=== PATIENT | female | born 1980 | race American Indian/Alaskan Native ===

== ENCOUNTER 2016-11-19 22:28 | Emergency (ER) | payer OTHER ==
[2016-11-19 22:36] VITALS: BP 138/80; PULSE 73; RESP 20; TEMP 98.3; O2SAT 100
[2016-11-19 23:15] LABS: URINE BILIRUBIN NEGATIVE (NEGATIVE); URINE BLOOD NEGATIVE (NEGATIVE); URINE COLOR Yellow (YELLOW); URINE GLUCOSE (UA) NORMAL (Normal); URINE KETONE NEGATIVE (NEGATIVE); URINE LEUKOCYTE ESTERASE NEG Leu/uL (Negative); URINE PROTEIN NEGATIVE (NEGATIVE); URINE UROBILINOGEN NORMAL mg/dL (0.2-1.0); WBC URINE 1 /hpf (0-5)
--- NOTE | 2016-11-20 00:13 | C.PDOC ---
History Of Present Illness 89 year old female presents to the ED with complaints of right lower back pain , urinary urgency and hesitancy for two days. Patient has a history of UTI with similar symptoms. She denies any hematuria, dysuria, abdominal pain, vaginal discharge, bleeding or fever. Time Seen by Provider: 11/19/16 22:49 Chief Complaint (Nursing): Back Pain History Per: Patient History/Exam Limitations: no limitations Onset/Duration Of Symptoms: Days (two days) Current Symptoms Are (Timing): Still Present Quality Of Discomfort: "Pain" Previous Symptoms: Back Pain Recent travel outside of the [place]: No Past Medical History Reviewed: Historical Data, Nursing Documentation, Vital Signs Vital Signs: Last Vital Signs Temp 98.3 F 11/19/16 22:31 Pulse 73 11/19/16 22:31 Resp 20 11/20/16 00:17 BP 138/80 11/19/16 22:31 Pulse Ox 100 11/20/16 06:25 - Medical History PMH: Back Problems (bulging lumbar disks), HTN Family History: States: Unknown Family Hx - Social History Hx Tobacco Use: No Hx Alcohol Use: No Hx Substance Use: No - Immunization History Hx Tetanus Toxoid Vaccination: No Hx Influenza Vaccination: No Hx Pneumococcal Vaccination: No Review Of Systems Constitutional: Negative for: Fever, Chills, Sweats Gastrointestinal: Negative for: Nausea, Vomiting, Abdominal Pain, Diarrhea Genitourinary: Positive for: Frequency, Other (urinary urgency and hesitancy ). Negative for: Dysuria, Hematuria, Vaginal Discharge, Vaginal Bleeding, Pelvic Pain Physical Exam - Physical Exam Appears: Non-toxic, No Acute Distress Skin: Warm, Dry Head: Atraumatic Eye(s): bilateral: Normal Inspection, PERRL, EOMI Oral Mucosa: Moist Neck: Supple Respiratory: No Wheezing Gastrointestinal/Abdominal: Normal Exam, Soft, No Tenderness, No Distention, No Guarding Back: Normal Inspection, No CVA Tenderness Pelvic: Other (deferred) Extremity: Normal ROM, No Tenderness Neurological/Psych: Oriented x3 Additional Physical Exam Comments: Patient's urine appears normal. ED Course And Treatment O2 Sat by Pulse Oximetry: 100 (room air ) Progress Note: Patient's urine culture sent for testing. Based on patient past symptoms and history, she will be treated for UTI. Pt will follow up with PMD for Urine Cx results Disposition Counseled Patient/Family Regarding: Diagnosis, Need For Followup, Rx Given - Disposition Referrals: Byron Moody DO [Staff Provider] - Disposition: HOME/ ROUTINE Disposition Time: 00:12 Condition: STABLE Additional Instructions: INCRESAE PO FLUIDS TAKE MEDS DIRECTED RETURN TO ER IF WORSE Prescriptions: Ibuprofen [Motrin] 600 mg PO Q6H #20 tab Nitrofurantoin Macrocrystals [Macrobid] 1 cap PO BID #14 cap Instructions: Urinary Tract Infection in Women (ED) - Clinical Impression Clinical Impression: Low back pain, UTI (urinary tract infection) - Scribe Statement The provider has reviewed the documentation as recorded by the Scribe Rhianna Isabel All medical record entries made by the Scribe were at my direction and personally dictated by me. I have reviewed the chart and agree that the record accurately reflects my personal performance of the history, physical exam, medical decision making, and the department course for this patient. I have also personally directed, reviewed, and agree with the discharge instructions and disposition.
== END 2016-11-20 00:17 | disposition home or self-care (01) ==
LOC: C.ER 22:28
DX: N39.0 Urinary tract infection, site not specified (principal); M54.5 Low back pain

== ENCOUNTER 2017-09-30 10:14 | Emergency (ER) | payer BC, OTHER ==
[2017-09-30 10:18] VITALS: BMI 22.3
[2017-09-30 10:19] VITALS: RESP 18; O2SAT 100
--- NOTE | 2017-09-30 10:38 | C.PDOC ---
History Of Present Illness 36 year old female presents to the emergency department with complaints of a headache persisting since yesterday. Patient states that she woke up yesterday morning with a headache in her occipital lobe, greater on the right side, and has been experiencing light sensitivity with her pain worsening with eye movements. Patient states her symptoms resolved during the day after she took a shower, but recurred last night. Patient reports taking Advil for her pain which provided relief. She reports she woke up this morning experiencing the same symptoms with greater intensity. Patient reports she normally gets a headache every two to three months, normally relieved with Advil. Patient denies taking any medications prior to arrival, trauma, nausea, vomiting, vision change, and a family history of migraines. VELEZ SINCE YEST. PS AWOKE YEST MORNING W R>L OCCIPITAL VELEZ, LIGHT SENSITIVITY, PAIN WORSE W EYE MOVEMENT. SX RESOLVED DURING DAY AFTER SHOWER, RECURRED LAST NIGHT. RELIEF W ADVIL. AWOKE THIS MORNING W MORE INTENSE SX. NO TRAUMA, NV, VISION CHANGE. PS NORMALLY GETS VELEZ EVERY 2-3 MO, NORMALLY RELIEVED W ADVIL. DENIES FHX MIGRAINE. 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 denies: Blurred Vision, Nausea, Vomiting Past Medical History Reviewed: Historical Data, Nursing Documentation, Vital Signs Vital Signs: Last Vital Signs Temp 99.6 F 09/30/17 10:17 Pulse 102 H 09/30/17 10:17 Resp 18 09/30/17 10:17 BP 127/81 09/30/17 10:17 Pulse Ox 100 09/30/17 12:10 - Medical History PMH: Back Problems (bulging lumbar disks), HTN Family History: Denies: Other - Social History Hx Tobacco Use: No Hx Alcohol Use: No Hx Substance Use: No - Immunization History Hx Tetanus Toxoid Vaccination: Yes Hx Influenza Vaccination: No Hx Pneumococcal Vaccination: No Review Of Systems Except As Marked, All Systems Reviewed And Found Negative. Eyes: Positive for: Pain (worse with eye movements), Other (photophobia). Negative for: Vision Change Gastrointestinal: Negative for: Nausea, Vomiting Neurological: Positive for: Headache (occipital lobe) Physical Exam - Physical Exam Appears: Non-toxic, In Acute Distress (mild) Skin: Normal Color Head: Atraumatic Eye(s): bilateral: EOMI (without difficulty), Photophobia, Other (no double vision, no gross vision deficiency) Nose: Normal (clear), No Tenderness (sinus tenderness) Neck: Normal, Supple Cardiovascular: Rhythm Regular Respiratory: Other (NARD) Neurological/Psych: Oriented x3, Normal Speech, Normal Cognition, No Other (no focal deficiencies) ED Course And Treatment O2 Sat by Pulse Oximetry: 100 (RA) Pulse Ox Interpretation: Normal - CT Scan/US Head Other Rad Studies (CT/US): Read By Radiologist, Radiology Report Reviewed CT/US Interpretation: No evidence of acute intracranial hemorrhage intracranial collection mass effect or midline shift. Progress Note: Plan: CT Scan Head w/o Contrast. Tylenol 650mg PO. Toradol 60mg IM. Compazine 10mg IM Progress - Re-Evaluation Re-evaluation Note: 09/30/17 12:10 MILD IMPROVE. NEURO INTACT. CT REPORT REVIEWED. WILL DOSE IMITREX, REEVAL 09/30/17 13:10 S/P IMITREX, IMPROVED COMPARED TO PRIOR. NEURO INTACT - Data Reviewed Data Reviewed: Diagnostic imaging, Old records Disposition Counseled Patient/Family Regarding: Diagnosis, Need For Followup, Rx Given - Disposition Referrals: YOUR,PMD [Other] Disposition: HOME/ ROUTINE Disposition Time: 13:10 Condition: IMPROVED Prescriptions: Ondansetron [Zofran Odt] 4 mg PO TID PRN #9 odt PRN Reason: Nausea/Vomiting Instructions: Migraine Headache (DC) Forms: [employer] (Ethiopian) - Clinical Impression Clinical Impression: Migraine - Scribe Statement The provider has reviewed the documentation as recorded by the Scribe (Angel Watt) Provider Attestation: All medical record entries made by the Scribe were at my direction and personally dictated by me. I have reviewed the chart and agree that the record accurately reflects my personal performance of the history, physical exam, medical decision making, and the department course for this patient. I have also personally directed, reviewed, and agree with the discharge instructions and disposition.
--- NOTE | 2017-09-30 11:54 | CT ---
PROCEDURE: CT HEAD WITHOUT CONTRAST. HISTORY: HEADACHE COMPARISON: Comparison is made to study dated 05/20/2014 . TECHNIQUE: Axial computed tomography images were obtained through the head/brain without intravenous contrast. Radiation dose: Total exam DLP = 1011.83 mGy-cm. This CT exam was performed using one or more of the following dose reduction techniques: Automated exposure control, adjustment of the mA and/or kV according to patient size, and/or use of iterative reconstruction technique. FINDINGS: HEMORRHAGE: No intracranial hemorrhage. BRAIN: No mass effect or edema. No atrophy or chronic microvascular ischemic changes. VENTRICLES: Unremarkable. No hydrocephalus. CALVARIUM: Unremarkable. PARANASAL SINUSES: Unremarkable as visualized. No significant inflammatory changes. MASTOID AIR CELLS: Unremarkable as visualized. No inflammatory changes. OTHER FINDINGS: None. IMPRESSION: No evidence of acute intracranial hemorrhage intracranial collection mass effect or midline shift.
[2017-09-30 13:17] VITALS: BP 100/64; PULSE 64; TEMP 98.5
== END 2017-09-30 13:14 | disposition home or self-care (01) ==
LOC: C.ER 10:14
DX: G43.909 Migraine, unspecified, not intractable, without status migrainosus (principal)
CPT/HCPCS: 70450; 96372; 99284; J0780; J1885; J3030

== ENCOUNTER 2018-09-04 22:09 | Inpatient (IN) | payer BC ==
[2018-09-04 22:51] VITALS: BMI 31.0
[2018-09-04] MEDS ORDERED: Lactated Ringer's 1,000 ML IV ONE (22:51)
[2018-09-04 23:43] LABS: BASO % 0.2 % (0.0-2.0); EOS % 0.1 % (0.0-4.0); HEMOGLOBIN 12.4 g/dL (11.0-16.0); LYMPH # 1.8 K/uL (1.0-4.3); LYMPH % 19.5 % (20.0-40.0); MEAN CORPUSCULAR HEMOGLOBIN 28.7 pg (27.0-31.0); MEAN CORPUSCULAR HGB CONC 33.4 g/dL (33.0-37.0); MEAN PLATELET VOLUME 9.1 fL (7.2-11.7); MONO # 0.7 K/uL (0.0-0.8); MONO % 7.5 % (0.0-10.0); NEUT # 6.7 K/uL (1.8-7.0); NEUT % 72.7 % (50.0-75.0); NRBC % 0.1 % (0.0-2.0); RBC 4.33 Mil/uL (3.80-5.20); RED CELL DISTRIBUTION WIDTH 14.8 % (11.5-14.5); WHITE BLOOD COUNT 9.2 K/uL (4.8-10.8)
[2018-09-04] MEDS: Lactated Ringer's 1,000 ML IV SCH (23:45)
[2018-09-04 23:51] LABS: ALB/GLOB RATIO 1.4 (1.0-2.1); ALBUMIN 3.7 g/dL (3.5-5.0); ALT/SGPT 13 U/L (9-52); AST/SGOT 29 U/L (14-36); BLOOD UREA NITROGEN 7 mg/dL (7-17); CALCIUM 9.8 mg/dl (8.6-10.4); GFR NON-AFRICAN AMERICAN > 60; PROTHROMBIN TIME 11.2 SECONDS (9.7-12.2); URIC ACID 5.7 mg/dL (2.2-7.5)
[2018-09-04 23:57] LABS: BARBITURATES, UR NEGATIVE (NEGATIVE); BENZODIAZEPINES, UR NEGATIVE (NEGATIVE); OPIATES, UR NEGATIVE (NEGATIVE); PHENCYCLIDINE, UR NEGATIVE (NEGATIVE)
[2018-09-05] MEDS: Oxytocin 30 UNIT in NS 500 ml 30 UNITS/500 ML BAG IV ONE ×2 (00:24→06:57)
--- NOTE | 2018-09-05 00:37 | OBHP ---
Datetime: 09/04/2018 22:35 IP Adm Impression: Term, intrauterine ; No Active Labor; Intact Membranes IP Chief Complaint Other: Advanced maternal age, thrombocytopenia; hypothyroid; swelling of the opti c nerve; anemia IP Admit Plan: Admit to unit; Initiate labor augmentation protocol Admit Comment, IP Provider: 37 y.o. , LMP unsure, STEPHEN 09/04/18, EGA 40 weeks c/o Ctx sinc 010 0 hours; progressing throughouth the day. [place] [facility] [place]; waited 2 hours then left. Pain scale n ow 8/10, and frequency Q 5 minutes. (+) AFM; denies LOF. VB care: High risk with [facility]. Noted for: 1) hypothyroid 2) "swelling of the optic nerve"/ papilledema 3) thrombocytopenia 4) Advanced maternal age 5) Anemia P Ob: x 3, all complicated by low platelet count. -1998, female, 7lb 4oz, [facility] [place] -2006, female, 7lb 8z, ; -2008, male, 8lb 1oz, , A1GDM. 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 Denies myomata, ovarian cysts, abnormal Pap; HPV (+) PMH: 1) 2013, hypothyroid. 2) age 17 - low platelet count. Denies any immunoglobulin therapy, steroids or platelet transfusio ns. No h/o any blood product transfusion. 3) "swelling to optic nerve". Diagnosed 08/2017 due to c/o blurred vision; has had focal vision los s. Wears glasses. S/P MRI 09/2017 ([facility]) - no acute intracranial abnormalities. Non specif ic minimal white matter changes ( see report) . Mild chronic pansinusitis.. Head CT scan, 2013- negat frankie. Patient is being by a neuro-magnet placer. This has been detected only during ; has n ot done any follow up when not . 4) Vestibular migraine - none in 5) Meniere's disease (aka, vertigo) - no issues during this PSH: denies NKDA Food allergiy: cow's milk = difficulty breathing, itching Meds: PNV - QD; Slow-FE - QD. Synthroid: 75 micrograms, Fri, Sat, Sun; 50 micrograms Mon - Thurs; took her dose this morning Soc Hx: denies tobacco, illicit drug or EtOH use. x 1 1/2 years. Works as a social media developer. Fam Hx: Mother alive 56 y.o. Father alive 65 y.o., both with DM and HTN P.E.: as above. WD in NAD. Awake, alert, oriented to time, person and place. Pleasant and cooperat frankie. Accompanied by Assessment: 37 y.o. P3013, 40 weeks, early labor. Multiple co-,morbidities - all apparently stable . D.W patient concern for pre-eclampsia; and possibllityof being on magnesium sulphate for seizure pr ophylaxis. Discussed possible pitocin for labour augmentation. Epidural for pain relief is not an opt ion, in light of h/o papilledema. Patient is in full agreement. Patient otherwise clinically stable. GBS (-). Plan: 1) Admit 2) NPO 3) IVFs 4) Admission labs 5) Expectant management 6) Anticipate vaginal delivery BP at 2334 hours 133/60 Pelvic Type - PN: Adequate Extremities - PN: Normal Abdomen - PN: Normal Back - PN: Normal Breast - PN: Not Done Lungs - PN: Normal Heart - PN: Normal Thyroid - PN: Not Done Neurologic - PN: Not Done HEENT - PN: Normal General - PN: Normal FHR - Baseline A Provider: 140 Membranes, Provider: Intact Contraction Comments Provider: irregular Comments, ACOG Physical Exam: Abdomen: Gravid. Soft. Non tender. Fundal height 40cm All other sysems reviewed and are negative Gestation - Est Wks by US: 40.0 IP Hx Assessment: The History has been Reviewed and is Current EGA AdmitDate IP: 40.0 Vital Signs Provider: Reviewed Vital Signs Provider Details: 162/87; 153/91; 171/83 (patient moving) IP Chief Complaint: Uterine contractions NICHD Variability Prov Fetus A: Moderate 6-25bpm NICHD Accel Fetus A IP Provider: [id number] FHR Category Provider Fetus A: Category I NICHD Decel Fetus A IP Provider: None Dilatation, Provider: 3-4 Effacement, Provider: 50 Station, Provider: -3 Genitourinary Exam: Normal DTRs - PN: Not Done
[2018-09-05] MEDS ORDERED: Nalbuphine HCL 10 mg/ml Ampule IVP ONE (00:38)
[2018-09-05] MEDS ORDERED: DiphenhydrAMINE 50 mg/ml Inj IVP ONE (00:39)
[2018-09-05] MEDS ORDERED: Nalbuphine HCL 10 mg/ml Ampule ONE (06:47)
[2018-09-05] MEDS ORDERED: DiphenhydrAMINE 50 mg/ml Inj ONE (06:47)
[2018-09-05] MEDS ORDERED: Oxytocin 30 UNIT in NS 500 ml 30 UNITS/500 ML BAG IV ONE (06:47)
[2018-09-05] MEDS: Lactated Ringer's 1,000 ML IV SCH (06:51)
[2018-09-05] MEDS ORDERED: Levothyroxine 50 MCG TAB PO ONE (07:30)
[2018-09-05] MEDS ORDERED: Lidocaine 2% MPF (5 ml) Inj ONE ×2 (07:38)
[2018-09-05] MEDS ORDERED: Oxycodone/Acetaminophen 5/325 mg Tab PO PRN (08:55)
--- NOTE | 2018-09-05 09:35 | OBDS ---
DELIVERY PERSONNEL Delivery Doctor: Deborah Saini DO Rn Internal Medicine: LESIA Flores Resident: Dr Gardner MATERNAL INFORMATION Delivery Anesthesia: None Medications in Delivery: pitocin Estimated Blood Loss (ml): 200 Placenta Cultured: No Maternal Complications: None Provider Comments: This now P4 delivered a viable female via over intact perineum. Infan t's head was delivered in a controlled manner. No nuchal was noted. Infant's shoulders were delivered atraumatically. Cord was clamped and cut. Cord blood and cord pH were collected. An intact 3VC place nta was delivered sponteanously. EBL 200cc. Mom and baby are recovering in stable condition. Dr Villa whittaker was present for the entire delivery. Ebony Gardner DO PGY-2 Marcus Rubio DO PGY-[address] Gardner and Dr. Velazquez with my direct supervision and direction. No complicati ons and agreed completely with their note. LABOR SUMMARY EDC: 09/04/2018 00:00 No. Babies in Womb: 1 Attempted: No Labor Anesthesia: None LABOR INFORMATION Onset of Labor: 09/04/2018 22:46 Complete Dilatation: 09/05/2018 08:32 Other Ripening Agents: n/a Oxytocin: Augmentation Group B Beta Strep: Negative MEMBRANES Membranes Rupture Method: Artificial Rupture of Membranes: 09/05/2018 07:30 Length of Rupture (hrs): 1.15 Amniotic Fluid Color: Clear Amniotic Fluid Amount: Small STAGES OF LABOR Stage 1 hrs: 9 Stage 1 min: 46 Stage 2 hrs: 0 Stage 2 min: 7 Stage 3 hrs: 0 Stage 3 min: 6 Total Time in Labor hrs: 9 Total Time in Labor min: 59 VAGINAL DELIVERY Episiotomy: None Laceration Extension: N/A Laceration Type: None Laceration Repair: Not Applicable Initial Vag Sponge Count: 10 Final Vag Sponge Count: 10 Initial Vag Sharps Count: 0 Final Vag Sharps Count: 0 Sponge Count Correct: Yes Sharps Count Correct: N/A BABY A INFORMATION Infant Delivery Date/Time: 09/05/2018 08:39 Method of Delivery: Vaginal Born in Route : No : N/A Forceps: N/A Vacuum Extraction: N/A Shoulder Dystocia : No SHOULDER DYSTOCIA BABY A Infant Delivery Date/Time: 09/05/2018 08:39 PRESENTATION/POSITION BABY A Presentation: Cephalic Cephalic Presentation: Vertex Breech Presentation: N/A PLACENTA INFORMATION BABY A Placenta Delivery Time : 09/05/2018 08:45 Placenta Method of Delivery: Spontaneous Placenta Status: Delivered SCORES BABY A Heart Rate 1 min: >100 bpm Resp Effort 1 min: Good Cry Reflex Irritability 1 min: Cough or Sneeze or Pulls Away Muscle Tone 1 min: Active Motion Color 1 min: Body Haslet, Extremities Blue Resuscitation Effort 1 min: Tactile Stimulation SCORE 1 MIN: 9 Heart Rate 5 min: >100 bpm Resp Effort 5 min: Good Cry Reflex Irritability 5 min: Cough or Sneeze or Pulls Away Muscle Tone 5 min: Active Motion Color 5 min: Body Haslet, Extremities Blue Resuscitation Effort 5 min: Tactile Stimulation SCORE 5 MIN: 9 INFORMATION BABY A Gestational Age at Delivery: 40.1 Gestational Status: Post-term Infant Outcome : Liveborn Infant Condition : Stable Infant Sex: Female IDENTIFICATION/MEDS BABY A ID Band Number: [id number] ID Band Location: Right Leg; Left Arm Sensor Applied: Yes Sensor Number: [id number] Sensor Location : Cord Clamp Vitamin K Given : Not Given Erythromycin Given: Not Given WEIGHT/LENGTH BABY A Infant Birthweight (gms): 3855 Infant Weight (lb): 8 Infant Weight (oz): 8 Length Inches: 19.50 Infant Length cms: 49.5 CORD INFORMATION BABY A No. Cord Vessels: 3 Nuchal Cord : N/A Cord Blood Taken: Yes Infant Suction: Mouth; Nose ASSESSMENT BABY A Complications: None Physical Findings at Delivery: Within Normal Limits Respirations: Appears Normal Enterprise Solutions Architect/ALS Called : No Care By: Hans Transferred To: Remains with Mother
[2018-09-05 12:26] LABS: URINE BACTERIA FEW (<OCC); URINE BILIRUBIN NEGATIVE (NEGATIVE); URINE BLOOD 3+ (NEGATIVE); URINE CLARITY Hazy (Clear); URINE COLOR Red (YELLOW); URINE GLUCOSE (UA) NORMAL (Normal); URINE LEUKOCYTE ESTERASE 1+ Leu/uL (Negative); URINE PROTEIN 2+ mg/dL (NEGATIVE); URINE UROBILINOGEN NORMAL mg/dL (0.2-1.0); WBC CLUMPS OCC /hpf
[2018-09-06] MEDS ORDERED: Levothyroxine 50 MCG TAB PO ONE (06:30)
[2018-09-06 07:54] LABS: BASO # 0.1 K/uL (0.0-0.2); BASO % 0.7 % (0.0-2.0); EOS % 0.5 % (0.0-4.0); HEMOGLOBIN 11.7 g/dL (11.0-16.0); LYMPH # 1.8 K/uL (1.0-4.3); LYMPH % 16.9 % (20.0-40.0); MEAN CELL VOLUME 85.3 fL (81.0-99.0); MEAN CORPUSCULAR HEMOGLOBIN 28.5 pg (27.0-31.0); MEAN CORPUSCULAR HGB CONC 33.4 g/dL (33.0-37.0); MEAN PLATELET VOLUME 9.6 fL (7.2-11.7); MONO # 0.9 K/uL (0.0-0.8); MONO % 8.4 % (0.0-10.0); NEUT # 7.7 K/uL (1.8-7.0); NEUT % 73.5 % (50.0-75.0); NRBC % 0.2 % (0.0-2.0); RBC 4.11 Mil/uL (3.80-5.20); RED CELL DISTRIBUTION WIDTH 14.7 % (11.5-14.5); WHITE BLOOD COUNT 10.4 K/uL (4.8-10.8)
[2018-09-06 08:03] VITALS: RESP 18
--- NOTE | 2018-09-06 22:40 | OBPPN ---
Datetime: 09/06/2018 08:55 PP Pain Prov: Within normal limits PP Nausea Prov: Denies PP Flatus Prov: Yes PP BM Prov: No PP Breasts Prov: Normal PP Heart Prov: Normal PP Lungs Prov: Normal PP Abdomen/Uterus Prov: Normal PP Lochia Prov: Normal PP Vulva/Perineum Prov: Not Done PP CVA Tenderness Prov: Not Done PP Extremities Prov: Normal PP C/S Incision Prov: Not Applicable PP Progress Prov: Normal PP Comments Phys Exam Prov: Fundus firm, non-tender Fundal height is 1 finger breaths below the umbilicus. PP Impression Prov: Normal progression PP Plan Prov: Continue present management PP Progress Note Prov: Patient was seen and examined this morning at bedside. No acute events overni ght as per patient. Mother and baby are doing well. Patient is feeling well, reporting minimal pain 3 /10. She took tylenol for pain. Bleeding is decreasing compared to yesterday. She denies nausea/vomit ing. +flatus and urination but has not had a bowel movement yet. Patient is alternating between breas t and bottle feedings. Patient has no complaints at this time. VS: BP:136/82 T: 98.8 HR: 69 O2: 99% RA Gen: NAD, AAOX3 Cardio: RRR, normal S1, S2 Lungs: CTA b/l Abdomen: Soft, Uterus is firm/non-tender. Fundal height is 1 finger breaths below the umbilicus. Extremities: no edema Assessment: Patient is a 37 year old s/p PPD#1 Plan: - Stable, afebrile - Pain control with Ibuprofen and Percocet prn - Encourage ambulation, hydration and - Continue routine care Case discussed with Dr. Bubba Hartley Jamal PGY2 Attending Note: patient seen, evaluated and examined by me with the resident. I agree with the abo ve as documented. Vital Signs Provider PP: Reviewed; Within Normal Limits
[2018-09-07] MEDS ORDERED: Levothyroxine 25 MCG TAB PO ONE (06:30)
[2018-09-07 08:07] VITALS: BP 128/77; PULSE 68; TEMP 98.3; O2SAT 100
--- NOTE | 2018-09-07 13:44 | OBDCSUM ---
Datetime: 09/07/2018 11:27 Discharged to, Provider: Home Follow up at, Provider: [facility] Disch Instr Activity: Normal activity Disch Instr Diet: Regular Discharge Diet restrict Prov: none Discharge Time: 09/07/2018 11:36 Follow up in weeks, Provider: 6 weeks Disch Referrals: None Disch Activity Restrictions: No exercising; No lifting; No driving; Minimize walking; Minimize stair -climbing; No sexual activity; Nothing in vagina - [place], tampons, douche Datetime: 09/07/2018 10:10 Discharged to, Provider: Home Disch Instr Activity: Normal activity Disch Instr Diet: Regular Discharge Instructions, Provider: Routine instructions given Discharge Diagnosis, Provider: Term Delivered Discharge Time: 09/07/2018 11:36 Disch Referrals: None Contraception discussed, Prov: Yes Disch Activity Restrictions: No lifting; Nothing in vagina - [place], tampons, douche Discharge Comment, Provider: Patient was seen and examined this morning at bedside. No acute events overnight as per patient and nursing staff. Mother and baby are doing well. Patient is feeling well, reporting minimal pain 2/10. She took tylenol for pain. She states that bleeding is minimum with only a few drops of blood. She is passing flatus and had bowel movemnets since yesterday. She is tolerati ng a regular diet and denies nausea/vomiting. Patient is alternating between breast and bottle feedin . Patient has no complaints at this time. She denies fevers, chills, shortness of breath, chest anastasia n, diarrhea, or urinary symptoms. VS: BP:128/77 T: 98.3 HR: 68 O2: 100% RA Gen: NAD, AAOX3 Cardio: RRR, normal S1, S2 Lungs: CTA b/l Abdomen: Soft, Uterus is firm/non-tender. Fundal height is 1 finger breaths below the umbilicus. Extremities: no edema Assessment: Patient is a 37 year old s/p PPD #2. Patient is progressing appropriately for post-pa rtum care and discharge planned for today. 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 Parveen Rubio, PGY-1 Pt seen and examined with Dr. Velazquez and fully discussed and agreed with his findings and POC Contraception after Delivery: Tubal Ligation
[2018-09-07] MEDS ORDERED: Influenza Vaccine 60 mcg/0.5 mL SYR (4YR UP) IM ONE (15:43)
== END 2018-09-07 15:53 | disposition home or self-care (01) | DRG 807 ==
LOC: C.EROB 22:09 → C.4D 22:42 → C.4M 09-05 10:29
PROVIDERS: ADMIT Obstetrics & Gynecology; ATTEND Obstetrics & Gynecology
PROC: 10E0XZZ Delivery of Products of Conception, External Approach (ICD-10-PCS; principal; 2018-09-05)
PROC: 10907ZC Drainage of Amniotic Fluid, Therapeutic from Products of Conception, Via Natural or Artificial Opening (ICD-10-PCS; 2018-09-05)
DX: O99.12 Other diseases of the blood and blood-forming organs and certain disorders involving the immune mechanism complicating childbirth (principal); O99.284 Endocrine, nutritional and metabolic diseases complicating childbirth; O99.02 Anemia complicating childbirth; D69.6 Thrombocytopenia, unspecified; J32.4 Chronic pansinusitis; H81.09 Meniere's disease, unspecified ear; E03.9 Hypothyroidism, unspecified; D64.9 Anemia, unspecified; O99.52 Diseases of the respiratory system complicating childbirth; H54.7 Unspecified visual loss; H53.8 Other visual disturbances; Z3A.40 40 weeks gestation of pregnancy; Z37.0 Single live birth